=== PATIENT | male | born 1980 | race Caucasian/White ===

== ENCOUNTER 2017-03-28 03:04 | Emergency (ER) | payer MEDICAID, OTHER ==
[~2017-03-28] VITALS: Ht 175.3 cm; Wt 83.0 kg
[2017-03-28 03:08] VITALS: Ht 175.3 cm; Wt 83.0 kg
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
--- NOTE | 2017-03-28 04:42 | RADRPT ---
PROCEDURE: Ribs 3 views. AP view chest CLINICAL INDICATION: Trauma. TECHNIQUE: 3 views of the left ribs were obtained. Single AP view chest was obtained. COMPARISON: No pertinent prior examinations were submitted for comparison. FINDINGS: No definite fracture or subluxation is identified. No destructive osseous lesions are seen. The lungs are clear. The cardiomediastinal silhouette is unremarkable. IMPRESSION: No acute fracture or subluxation. RPTAT: HIKT .Rod Valenzuela MD, MD Date Time Electronically viewed and signed by .Rod Valenzuela MD, on 03/28/2017 04:42 .T/
--- NOTE | 2017-03-28 04:45 | RADRPT ---
PROCEDURE: XR Chest. CLINICAL INDICATION: Chest pain TECHNIQUE: AP Portable chest. COMPARISON: No pertinent prior examinations were submitted for comparison. FINDINGS: The cardiomediastinal silhouette is normal. The lungs are clear. The osseous structures are unrema rkable. IMPRESSION: No acute findings. RPTAT: HIKT .Rod Valenzuela MD, MD Date Time Electronically viewed and signed by .Rod Valenzuela MD, MD on 03/28/2017 04:45 .T/
[2017-03-28] MEDS ORDERED: TRAM50TA2 PO (04:53)
[2017-03-28] MEDS ORDERED: IBUP-1542 PO (04:53)
== END 2017-03-28 05:58 | disposition home or self-care (01) ==
LOC: FTE 03:04
DX: R07.81 Pleurodynia (principal); F17.210 Nicotine dependence, cigarettes, uncomplicated
CPT/HCPCS: 71010; 71100; 93005

== ENCOUNTER 2017-04-13 01:45 | Emergency (ER) | payer MEDICAID ==
[~2017-04-13] VITALS: Ht 172.7 cm; Wt 84.5 kg
[~2017-04-13 01:45] MED LIST: IBUP-1542 PO; TRAM50TA2 PO
[2017-04-13 01:54] VITALS: Ht 172.7 cm; Wt 84.5 kg
[2017-04-13 04:37] LABS: ADD UMIC NO; UR ASCORBIC ACID NEGATIVE (NEGATIVE); UR BILIRUBIN (Dip) NEGATIVE (NEGATIVE); UR BLOOD (Dip) NEGATIVE (NEGATIVE); UR CLARITY CLEAR (CLEAR); UR COLOR STRAW (YELLOW); UR GLUCOSE (Dip) NEGATIVE (NEGATIVE); UR KETONES (Dip) NEGATIVE (NEGATIVE); UR LEUKOCYTE ESTERASE (Dip) NEGATIVE Leu/ul (NEGATIVE); UR NITRITE (Dip) NEGATIVE (NEGATIVE); UR SPECIFIC GRAVITY (Dip) 1.015 (1.003-1.030); UR TOTAL PROTEIN (Dip) NEGATIVE (NEGATIVE); UR UROBILINOGEN (Dip) NEGATIVE (NEGATIVE)
[2017-04-13 04:42] LABS: ADD SCAN DIFF NO
[2017-04-13 04:56] LABS: BASOPHIL # 0.1 10^3/ul (0.0-0.1); BASOPHILS % 0.7 % (0.0-2.0); EOSINOPHILS # 0.2 10^3/ul (0.0-0.5); HEMATOCRIT 41.2 % (42.0-52.0); HEMOGLOBIN 13.8 g/dl (14.0-18.0); LYMPHOCYTES # 4.1 10^3/ul (0.8-2.9); LYMPHOCYTES % 42.1 % (15.0-51.0); MEAN CORPUSCULAR HEMOGLOBIN 30.6 pg (29.0-33.0); MEAN CORPUSCULAR HGB CONC 33.5 g/dl (32.0-37.0); MEAN CORPUSCULAR VOLUME 91.4 fl (82.0-101.0); MEAN PLATELET VOLUME 9.6 fl (7.4-10.4); MONOCYTES % 10.6 % (0.0-11.0); NEUTROPHIL # 4.3 10^3/ul (1.6-7.5); NEUTROPHILS % 44.1 % (39.0-77.0); PLATELET COUNT 309 10^3/UL (140-415); RED BLOOD COUNT 4.51 10^6/ul (4.70-6.10); RED CELL DISTRIBUTION WIDTH 12.6 % (11.5-14.5); WHITE BLOOD COUNT 9.7 10^3/ul (4.8-10.8)
[2017-04-13 05:08] LABS: BARBITURATES Negative (NEGATIVE); BENZODIAZEPINES Negative (NEGATIVE); CANNABINOIDS Negative (NEGATIVE); COCAINE Negative (NEGATIVE); OPIATES Negative (NEGATIVE)
[2017-04-13 05:11] LABS: ACETAMINOPHEN < 10.0 ug/ml (10.0-30.0); ALANINE AMINOTRANSFERASE 40 IU/L (13-69); ALBUMIN 4.6 g/dl (3.3-4.9); ALKALINE PHOSPHATASE 133 IU/L (42-121); ANION GAP 12 (8-16); ASPARTATE AMINO TRANSFERASE 23 IU/L (15-46); BILIRUBIN,INDIRECT 0.3 mg/dl (0-1.1); BILIRUBIN,TOTAL 0.3 mg/dl (0.2-1.3); BLOOD UREA NITROGEN 14 mg/dl (7-20); CARBON DIOXIDE 29 mmol/L (21-31); CHLORIDE 101 mmol/L (97-110); CREATININE 0.82 mg/dl (0.61-1.24); ETHANOL < 10.0 mg/dl; GLUCOSE 80 mg/dl (70-220); POTASSIUM 3.8 mmol/L (3.5-5.1); SALICYLATE < 1.0 mg/dl (5.0-30.0); SODIUM 138 mmol/L (135-144); TOTAL PROTEIN 6.9 g/dl (6.1-8.1)
[2017-04-13] MEDS ORDERED: MULTI PO (05:44)
--- NOTE | 2017-04-13 06:51 | ERD ---
ER Documentation Chief Complaint Date/Time DATE: 04/13/17 TIME: 06:47 Chief Complaint left side chest pain x 1 month. denies SOB HPI 37-year-old male with a history of psychiatric illness presenting with left- sided chest pain for 1 month. While here, the patient started complaining about hearing voices. He states the voices are in different languages so he cannot understand them. He denies any suicidal or homicidal ideations. He states he is on medications but he does not know which ones. With regard to his chest pain, is left-sided, constant, for 1 month. It is nonradiating with no associated shortness of breath, dizziness, headache, cough, fever, or chills. He has been seen at an outside hospital before and he said that they told him he was dying. ROS All systems reviewed and are negative except as per history of present illness. Medications Home Meds Active Scripts Tramadol HCl (Tramadol HCl) 50 Mg Tablet, 50 MG PO Q6 for SEVERE PAIN LEVEL 7-10 , #20 TAB Prov:MADHURI CANALES COLLECTION CLERK 03/28/17 Ibuprofen* (Motrin*) 600 Mg Tab, 600 MG PO Q6H Y for PAIN AND OR ELEVATED TEMP, #30 TAB Prov:MADHURI CANALES COLLECTION CLERK 03/28/17 Reported Medications Multivitamins* (Theragran*) 1 Tab Tab, 1 TAB PO DAILY, TAB 04/13/17 Allergies Allergies: Coded Allergies: No Known Allergy (Unverified , 04/13/17) PMhx/Soc Medical and Surgical Hx: pt denies Medical Hx History of Surgery: No Hx Neurological Disorder: No Hx Respiratory Disorders: No Hx Cardiac Disorders: No Hx Psychiatric Problems: Yes (depression) Hx Alcohol Use: Yes (rarely) Hx Substance Use: Yes Hx Tobacco Use: Yes Smoking Status: Current some day smoker FmHx Family History: other (None) Physical Exam Vitals Vital Signs Date Time Temp Pulse Resp B/P Pulse Ox O2 Delivery O2 Flow Rate FiO2 04/13/17 01:54 98.1 85 18 181/102 100 Physical Exam Const: Well-appearing, no apparent distress Head: Atraumatic Eyes: Normal Conjunctiva ENT: Normal External Ears, Nose and Mouth. Neck: Full range of motion..~ No meningismus. Resp: Clear to auscultation bilaterally Cardio: Regular rate and rhythm, no murmurs Abd: Soft, non tender, non distended. Normal bowel sounds Skin: No petechiae or rashes Back: No midline or flank tenderness Ext: No cyanosis, or edema Neur: Awake and alert and oriented 3, moving all extremities, no facial asymmetry Psych: Depressed mood and strange affect, delusional, no SI or HI, positive for auditory hallucinations, no visual hallucination Result Diagram: 04/13/17 0435 04/13/17 0435 Results 24 hrs Laboratory Tests Test 04/13/17 04:07 04/13/17 04:35 Urine Color STRAW Urine Clarity CLEAR Urine pH 6.0 Urine Specific [place] 1.015 Urine Ketones NEGATIVEmg/dL Urine Nitrite NEGATIVEmg/dL Urine Bilirubin NEGATIVEmg/dL Urine Urobilinogen NEGATIVEmg/dL Urine Leukocyte Esterase NEGATIVELeu/ul Urine Hemoglobin NEGATIVEmg/dL Urine Glucose NEGATIVEmg/dL Urine Total Protein NEGATIVEmg/dl Urine Opiates Screen Negative Urine Barbiturates Negative Urine Amphetamines Screen Positive Urine Benzodiazepines Screen Negative Urine Cocaine Screen Negative Urine Cannabinoids Negative White Blood Count 9.710^3/ul Red Blood Count 4.5110^6/ul Hemoglobin 13.8g/dl Hematocrit 41.2% Mean Corpuscular Volume 91.4fl Mean Corpuscular Hemoglobin 30.6pg Mean Corpuscular Hemoglobin Concent 33.5g/dl Red Cell Distribution Width 12.6% Platelet Count 40511^3/UL Mean Platelet Volume 9.6fl Neutrophils % 44.1% Lymphocytes % 42.1% Monocytes % 10.6% Eosinophils % 2.0% Basophils % 0.7% Nucleated Red Blood Cells % 0.0/100WBC Neutrophils # 4.310^3/ul Lymphocytes # 4.110^3/ul Monocytes # 1.010^3/ul Eosinophils # 0.210^3/ul Basophils # 0.110^3/ul Nucleated Red Blood Cells # 0.010^3/ul Sodium Level 138mmol/L Potassium Level 3.8mmol/L Chloride Level 101mmol/L Carbon Dioxide Level 29mmol/L Anion Gap 12 Blood Urea Nitrogen 14mg/dl Creatinine 0.82mg/dl Glucose Level 80mg/dl Calcium Level 9.0mg/dl Total Bilirubin 0.3mg/dl Direct Bilirubin 0.00mg/dl Indirect Bilirubin 0.3mg/dl Aspartate Amino Transf (AST/SGOT) 23IU/L Alanine Aminotransferase (ALT/SGPT) 40IU/L Alkaline Phosphatase 133IU/L Total Protein 6.9g/dl Albumin 4.6g/dl Globulin 2.30g/dl Albumin/Globulin Ratio 2.00 Salicylates Level < 1.0mg/dl Acetaminophen Level < 10.0ug/ml Ethyl Alcohol Level < 10.0mg/dl Procedures/MDM Labs reviewed and do not show any significant abnormalities other than positive UDS for amphetamines MDM Patient's behavioral symptoms have stabilized while in the department. Patient is medically cleared and appropriate for psychiatric evaluation and work up. No e/o neurologic, infectious, or metabolic cause. Patient awaiting tele- psychiatric evaluation. Patient signed out to the oncoming ED physician. Departure Diagnosis: Primary Impression: Auditory hallucinations Additional Impression: Chronic chest pain Condition: HERRERA Chavis MD Apr 13, 2017 06:50
--- NOTE | 2017-04-13 07:31 | PSY ---
Date/Time of Note Date/Time of Note DATE: 04/13/17 TIME: 06:05 Psychiatric Subjective Eval Consent Pt consented to telemedicine: Yes Subjective Evaluation Patient location: emergency Chief Complaint: left side chest pain x 1 month. denies SOB Reason for consult: i have chest pain History of present illness patient is a 37 yo male with PPH of bipolar and methamphetamine who came to the ER due to having chest pain , while in the ER he was acting very disorganized and responding to internal stimuli, he was acting very paranoid and told the first provider he talk to he told that he was feeling suicidal. patient is very guarded with me, he states that he came for chest pain and hears voices that he cannot understand and needs translation for it, he states that we are in 2024 year, that he has a job and lives alone, states that he was admitted before to a psychiatric hospital , denies any current si or hi, denies feeling depressed, has not slept for few days and has used methamphetamine. He is very disorganized and at times illogical, gets a coin out of his pocket and states that he will bring me more clients with his money. Past psychiatric history past admission Hospitalization: yes Family History denies Medical history Problems Medical Problems: (1) Acute psychosis Status: Acute (2) Auditory hallucinations Status: Acute (3) Chronic chest pain Status: Acute (4) Patient left after triage Status: Acute (5) Patient left without being seen Status: Acute (6) Rib pain Status: Acute Allergies: Coded Allergies: No Known Allergy (Unverified , 04/13/17) Substance Abuse Substance abuse history: Yes Prior substance abuse treatmen: No Social History Marital status: single Level of education: hs DPA/Conservatorship: No Occupation/Shelter: employed Psychiatric Objective Eval Review of Systems: Review of Systems: Not Applicable Physical Examination: Physical Examination: Applicable Sleep: Insomnia Appetite: Decreased Energy: Decreased Interest: Decreased Mental Status Examination: Appearance: Disheveled Eye Contact: Fair Psychomotor Activity: Agitated Behavior: Guarded Speech: Disorganized AFFECT: Libile Mood: Irritable Though Process: Loose Thought Content: Hallucinations Suicidal: Yes Homicidal: No On 72 hour hold: No Orientation: x2 Cognition: Alert Insight: Impared Judgement: Impared Attention Span: Distractible Laboratory Results Laboratory Tests Test 04/13/17 04:07 04/13/17 04:35 Urine Color STRAW Urine Clarity CLEAR Urine pH 6.0 Urine Specific [place] 1.015 Urine Ketones NEGATIVEmg/dL Urine Nitrite NEGATIVEmg/dL Urine Bilirubin NEGATIVEmg/dL Urine Urobilinogen NEGATIVEmg/dL Urine Leukocyte Esterase NEGATIVELeu/ul Urine Hemoglobin NEGATIVEmg/dL Urine Glucose NEGATIVEmg/dL Urine Total Protein NEGATIVEmg/dl Urine Opiates Screen Negative Urine Barbiturates Negative Urine Amphetamines Screen Positive Urine Benzodiazepines Screen Negative Urine Cocaine Screen Negative Urine Cannabinoids Negative White Blood Count 9.710^3/ul Red Blood Count 4.5110^6/ul Hemoglobin 13.8g/dl Hematocrit 41.2% Mean Corpuscular Volume 91.4fl Mean Corpuscular Hemoglobin 30.6pg Mean Corpuscular Hemoglobin Concent 33.5g/dl Red Cell Distribution Width 12.6% Platelet Count 16380^3/UL Mean Platelet Volume 9.6fl Neutrophils % 44.1% Lymphocytes % 42.1% Monocytes % 10.6% Eosinophils % 2.0% Basophils % 0.7% Nucleated Red Blood Cells % 0.0/100WBC Neutrophils # 4.310^3/ul Lymphocytes # 4.110^3/ul Monocytes # 1.010^3/ul Eosinophils # 0.210^3/ul Basophils # 0.110^3/ul Nucleated Red Blood Cells # 0.010^3/ul Sodium Level 138mmol/L Potassium Level 3.8mmol/L Chloride Level 101mmol/L Carbon Dioxide Level 29mmol/L Anion Gap 12 Blood Urea Nitrogen 14mg/dl Creatinine 0.82mg/dl Glucose Level 80mg/dl Calcium Level 9.0mg/dl Total Bilirubin 0.3mg/dl Direct Bilirubin 0.00mg/dl Indirect Bilirubin 0.3mg/dl Aspartate Amino Transf (AST/SGOT) 23IU/L Alanine Aminotransferase (ALT/SGPT) 40IU/L Alkaline Phosphatase 133IU/L Total Protein 6.9g/dl Albumin 4.6g/dl Globulin 2.30g/dl Albumin/Globulin Ratio 2.00 Salicylates Level < 1.0mg/dl Acetaminophen Level < 10.0ug/ml Ethyl Alcohol Level < 10.0mg/dl Assessment and Plan Assessment/Diagnosis Bryant I: psychosis nos bipolar do per hx amphetamine abuse Bryant II: deferred Bryant III: as per record Bryant IV: poor social support Bryant V: gaf 20 Recommendation/Plan Medication Management haldol 5 mg po tid with benadryl 25 mg po tid and ativan 1 mg po tid Follow-up/Disposition Patient needs unvoluntary admission due to danger to self and grave disability In my opinion, patient currently MEETS criterion for inpatient care~ and CANNOT be safely treated at a lower level of care today as evidenced~ by the following risk factors:~ Suicidal Ideation. Previous suicide attempt Intense feelings of hopelessness and/or lack of future orientation. Non-Compliance with Outpatient Treatment.~ Substance ABUSE in conjunction with another psychiatric disorder.~ Chronic Pain.~ Significant recent DETERIORATION in function, behavior and thought processes Severe Incompetence in Regards to Health Self-Management Patient is labile, intrusive and socially inappropriate with personal boundaries Confused, disoriented and/or grossly unable to distinguish reality from illusion Requires near constant monitoring to prevent inadvertent danger to self and others No family members willing and able to care for patient in the community [id number] Recommendation: [facility] KASIE SIDDIQI MD Apr 13, 2017 07:22
[2017-04-13] MEDS ORDERED: NICOTINE (14 MG/24 HR) PATCH TRANSDERM ONE (10:00)
[2017-04-13] MEDS ORDERED: LORAZEPAM 2 MG INJ IM ONE (14:00)
[2017-04-13 18:30] VITALS: BP 144/88; PULSE 77; RESP 18
== END 2017-04-13 20:46 ==
LOC: FTE 01:45 → E/R 20:46
DX: R44.0 Auditory hallucinations (principal); F17.210 Nicotine dependence, cigarettes, uncomplicated; R40.2142 Coma scale, eyes open, spontaneous, at arrival to emergency department; R40.2252 Coma scale, best verbal response, oriented, at arrival to emergency department; R40.2362 Coma scale, best motor response, obeys commands, at arrival to emergency department
CPT/HCPCS: 36415; 80053; 80306; 80307; 81003; 85025; 96372; J2060; Z7502; Z7610

== ENCOUNTER 2017-04-17 20:52 | Emergency (ER) | payer MEDICAID ==
[~2017-04-17] VITALS: Ht 172.7 cm; Wt 81.5 kg
[~2017-04-17 20:52] MED LIST changes: +MULTI PO
[2017-04-17 21:51] VITALS: Ht 172.7 cm; Wt 81.5 kg
[2017-04-17 23:16] VITALS: TEMP 98.1
[2017-04-17] MEDS ORDERED: SOD CHLORIDE 0.9% 1,000 ML IV STA (23:17)
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
[2017-04-17 23:38] LABS: ADD SCAN DIFF NO
[2017-04-17 23:40] LABS: BASOPHIL # 0.1 10^3/ul (0.0-0.1); BASOPHILS % 0.5 % (0.0-2.0); EOSINOPHILS % 0.1 % (0.0-7.0); HEMATOCRIT 44.4 % (42.0-52.0); HEMOGLOBIN 14.9 g/dl (14.0-18.0); LYMPHOCYTES % 19.8 % (15.0-51.0); MEAN CORPUSCULAR HEMOGLOBIN 30.2 pg (29.0-33.0); MEAN CORPUSCULAR HGB CONC 33.6 g/dl (32.0-37.0); MEAN CORPUSCULAR VOLUME 89.9 fl (82.0-101.0); MEAN PLATELET VOLUME 9.5 fl (7.4-10.4); MONOCYTE # 0.6 10^3/ul (0.3-0.9); MONOCYTES % 5.5 % (0.0-11.0); NEUTROPHIL # 7.5 10^3/ul (1.6-7.5); NEUTROPHILS % 73.5 % (39.0-77.0); PLATELET COUNT 385 10^3/UL (140-415); RED BLOOD COUNT 4.94 10^6/ul (4.70-6.10); RED CELL DISTRIBUTION WIDTH 12.6 % (11.5-14.5); WHITE BLOOD COUNT 10.2 10^3/ul (4.8-10.8)
--- NOTE | 2017-04-17 23:59 | RADRPT ---
PROCEDURE: XR Chest. CLINICAL INDICATION: Chest pain. TECHNIQUE: Single frontal view of the chest. COMPARISON: 03/28/2017. FINDINGS: The cardiomediastinal silhouette is within normal limits. The lungs are clear. No signs of pleural f luid or pneumothorax are seen. The osseous structures and soft tissues are unremarkable. IMPRESSION: No evidence for active cardiopulmonary disease. RPTAT: [facility] Physician Jason Date Time Electronically viewed and signed by Patricia Escalante Physician on 04/17/2017 23:59 RS/
[2017-04-18 00:06] LABS: ALANINE AMINOTRANSFERASE 52 IU/L (13-69); ALBUMIN 5.3 g/dl (3.3-4.9); ALKALINE PHOSPHATASE 97 IU/L (42-121); ANION GAP 21 (8-16); ASPARTATE AMINO TRANSFERASE 35 IU/L (15-46); BILIRUBIN,INDIRECT 0.5 mg/dl (0-1.1); BILIRUBIN,TOTAL 0.5 mg/dl (0.2-1.3); BLOOD UREA NITROGEN 14 mg/dl (7-20); CALCIUM 10.1 mg/dl (8.4-10.2); CARBON DIOXIDE 29 mmol/L (21-31); CHLORIDE 97 mmol/L (97-110); CREATININE 0.72 mg/dl (0.61-1.24); GLUCOSE 101 mg/dl (70-220); POTASSIUM 3.9 mmol/L (3.5-5.1); SODIUM 143 mmol/L (135-144); TOTAL PROTEIN 8.6 g/dl (6.1-8.1)
[2017-04-18 00:27] LABS: TROPONIN-I < 0.012 ng/ml (0.00-0.12)
[2017-04-18 01:45] LABS: BARBITURATES Negative (NEGATIVE); BENZODIAZEPINES Negative (NEGATIVE); CANNABINOIDS Negative (NEGATIVE); COCAINE Negative (NEGATIVE); OPIATES Negative (NEGATIVE)
[2017-04-18] MEDS ORDERED: IBUP-1542 PO (02:21)
[2017-04-18 02:23] VITALS: BP 149/91; PULSE 110
== END 2017-04-18 02:34 | disposition home or self-care (01) ==
LOC: FTE 20:52
DX: S20.212A Contusion of left front wall of thorax, initial encounter (principal); F17.210 Nicotine dependence, cigarettes, uncomplicated; Y08.89XA Assault by other specified means, initial encounter
CPT/HCPCS: 36415; 71010; 80053; 80307; 84484; 85025; 93005; J7030; Z7502